=== PATIENT | female | born 1980 | race Caucasian/White ===

== ENCOUNTER 2023-12-31 17:12 | Emergency (ER) | payer SELFPAY ==
[~2023-12-31] VITALS: Ht 167.6 cm; Wt 68.2 kg
[2023-12-31 17:46] VITALS: BP 138/87; TEMP 98.2
[2023-12-31 18:26] VITALS: PULSE 85
== END 2023-12-31 18:26 | disposition home or self-care (01) ==
LOC: COL.ER 17:12
DX: T15.91XA Foreign body on external eye, part unspecified, right eye, initial encounter (principal); W44.8XXA Other foreign body entering into or through a natural orifice, initial encounter; Y99.0 Civilian activity done for income or pay